=== PATIENT | female | born 1980 | race Caucasian/White ===

== ENCOUNTER 2018-05-06 19:49 | Inpatient (IN) | payer MEDICARE, MEDICAID ==
[~2018-05-06] VITALS: Ht 157.5 cm; Wt 56.7 kg
[2018-05-06 22:24] LABS: BASOPHILS % (AUTO) 0.4 % (0.0-2.0); EOSINOPHILS % (AUTO) 3.6 % (1.0-6.0); HEMATOCRIT 40.9 % (36-46); HEMOGLOBIN 13.6 g/dL (12.0-16.0); LYMPHOCYTES # (AUTO) 2.8 K/uL (1.0-4.8); LYMPHOCYTES % (AUTO) 20.4 % (22.0-44.0); MEAN CORPUSCULAR HEMOGLOBIN 31.8 pg (26.0-34.0); MEAN CORPUSCULAR HGB CONC 33.4 G/dL (31.0-37.0); MEAN CORPUSCULAR VOLUME 95 fL (80-100); MONOCYTES # (AUTO) 1.1 K/uL (0.1-1.0); MONOCYTES % (AUTO) 7.6 % (2.0-9.0); NEUTROPHILS # (AUTO) 9.5 K/uL (1.8-7.7); PLATELET COUNT (AUTO) 559 K/uL (150-450); RED BLOOD CELL COUNT(AUTO) 4.29 MIL/uL (4.00-5.20); RED CELL DISTRIBUTION WIDTH 13.3 % (11.5-14.5)
[2018-05-06 22:43] LABS: ANION GAP 4 mmol/L (8-16); CALCIUM, TOTAL 8.8 mg/dL (8.8-10.5); CARBON DIOXIDE 32 mmol/L (22-29); CHLORIDE 104 mmol/L (98-107); CREATININE 0.65 mg/dL (0.60-1.30); GLOMERULAR FILTR. RATE CALC > 60 mL/min (>60); GLUCOSE,RANDOM 83 mg/dL (70-110); POTASSIUM 4.7 mmol/L (3.5-5.1); SODIUM SERUM 140 mmol/L (136-145); UREA NITROGEN, BLOOD 14 mg/dL (7-18)
[2018-05-06 22:54] LABS: ALANINE AMINOTRANSFERASE 18 U/L (12-78); ALBUMIN 3.1 g/dL (3.4-5.0); ALKALINE PHOSPHATASE 97 U/L (46-116); ASPARTATE AMINOTRANSFERASE 16 U/L (15-37); BILIRUBIN,TOTAL 0.1 mg/dL (0.1-1.0); HCG,QUANTITATIVE < 1 mIU/mL (0-6); TOTAL PROTEIN, SERUM 7.1 g/dL (6.4-8.2)
[2018-05-06 23:36] LABS: AMPHET/METH SCREEN,URINE POSITIVE (NEGATIVE); BARBITURATE SCREEN, URINE NEGATIVE (NEGATIVE); BENZODIAZEPINES SCREEN,URINE NEGATIVE (NEGATIVE); CANNABINOID SCREEN,URINE POSITIVE (NEGATIVE); COCAINE SCREEN,URINE NEGATIVE (NEGATIVE); METHADONE SCREEN, URINE NEGATIVE (NEGATIVE); OPIATE SCREEN,URINE NEGATIVE (NEGATIVE); PHENCYCLIDINE SCREEN,URINE NEGATIVE (NEGATIVE)
[2018-05-07] MEDS ORDERED: HALOPERIDOL LACTATE 5 MG/ML VIAL IM ONE
[2018-05-07] MEDS ORDERED: LORazepam 2 MG/ML VIAL IM ONE
[2018-05-07] MEDS ORDERED: DiphenhydrAMINE HCL 50 MG/ML VIAL IM ONE
[2018-05-07] MEDS ORDERED: LORazepam 2 MG TABLET PO PRN (01:15)
[2018-05-07] MEDS ORDERED: HALOPERIDOL 5 MG TABLET PO PRN (01:15)
[2018-05-07] MEDS ORDERED: ZOLPIDEM TARTRATE 10 MG TABLET PO PRN (01:15)
[2018-05-07 02:43] VITALS: BP 128/85
[2018-05-07] MEDS ORDERED: FLUCONAZOLE 150 MG TABLET PO ONE (12:45)
[2018-05-07] MEDS ORDERED: MAGNESIUM HYDROXIDE SUSPENSION 30 ML UDCUP PO PRN (13:00)
[2018-05-07] MEDS ORDERED: TUBERCULIN, PURIFIED PROTEIN DERIVATIVE 5 TU/0.1 ML SYG ID ONE (13:00)
[2018-05-07] MEDS ORDERED: GuaiFENesin/D-METHORPHAN [SUGAR-FREE] 200-20MG/10 ML SYRUP UDCUP PO PRN (13:00)
[2018-05-07] MEDS ORDERED: HydrOXYzine PAMOATE 50 MG CAPSULE PO PRN (13:00)
[2018-05-07] MEDS ORDERED: PROMETHAZINE HCL 25 MG TABLET PO PRN (13:00)
[2018-05-07] MEDS ORDERED: ACETAMINOPHEN 325 MG TABLET PO PRN (13:00)
[2018-05-07] MEDS ORDERED: OLANZapine 5 MG RAPDIS TABLET PO PRN (13:00)
[2018-05-07] MEDS: THIAMINE HCL 100 MG TABLET PO SCH (20:34)
[2018-05-07] MEDS: NITROFURANTOIN/NITROFURAN MAC 100 MG CAPSULE [MACROBID] PO SCH (20:34)
[2018-05-07] MEDS: DIVALPROEX SODIUM 500 MG ER TABLET PO SCH (20:36)
[2018-05-07] MEDS ORDERED: OLANZapine 5 MG RAPDIS TABLET PO SCH (21:00)
[2018-05-08 07:00] LABS: HEMOGLOBIN A1C 5.9 % (4.5-6.2)
[2018-05-08 07:23] LABS: CHOL/HDL RATIO 2.7 (3.9-5.7); FREE T4 (FREE THYROXINE) 1.07 ng/dL (0.76-1.46); THYROID STIMULATING HORMONE 1.86 uIU/mL (0.36-3.74)
[2018-05-08] MEDS: THIAMINE HCL 100 MG TABLET PO SCH ×2 (08:46→17:00)
[2018-05-08] MEDS: NITROFURANTOIN/NITROFURAN MAC 100 MG CAPSULE [MACROBID] PO SCH ×2 (08:46→17:00)
[2018-05-08] MEDS: FOLIC ACID 1 MG TABLET PO SCH (08:46)
[2018-05-08] MEDS: MULTIVITAMINS WITH MINERALS, THERAPEUTIC TABLET PO SCH (08:46)
[2018-05-08] MEDS: NALTREXONE HCL 50 MG TABLET PO SCH (08:46)
[2018-05-08] MEDS: DIVALPROEX SODIUM 500 MG ER TABLET PO SCH (20:20)
[2018-05-08] MEDS: OLANZapine 10 MG RAPDIS TABLET PO SCH (20:20)
[2018-05-09] MEDS: THIAMINE HCL 100 MG TABLET PO SCH ×2 (09:24→16:48)
[2018-05-09] MEDS: NALTREXONE HCL 50 MG TABLET PO SCH (09:24)
[2018-05-09] MEDS: MULTIVITAMINS WITH MINERALS, THERAPEUTIC TABLET PO SCH (09:24)
[2018-05-09] MEDS: NITROFURANTOIN/NITROFURAN MAC 100 MG CAPSULE [MACROBID] PO SCH ×2 (09:24→16:48)
[2018-05-09] MEDS: FOLIC ACID 1 MG TABLET PO SCH (09:25)
[2018-05-09] MEDS: OLANZapine 10 MG RAPDIS TABLET PO SCH (20:10)
[2018-05-09] MEDS: DIVALPROEX SODIUM 500 MG ER TABLET PO SCH (20:11)
[2018-05-09] MEDS: CARBAMIDE PEROXIDE 6.5% 15 ML OTIC SOLUTION AU SCH (22:30)
[2018-05-10 06:25] LABS: BASOPHILS % (AUTO) 0.2 % (0.0-2.0); EOSINOPHILS % (AUTO) 2.6 % (1.0-6.0); LYMPHOCYTES # (AUTO) 2.7 K/uL (1.0-4.8); LYMPHOCYTES % (AUTO) 17.8 % (22.0-44.0); MEAN CORPUSCULAR HGB CONC 33.2 G/dL (31.0-37.0); MEAN CORPUSCULAR VOLUME 96 fL (80-100); MONOCYTES # (AUTO) 1.1 K/uL (0.1-1.0); NEUTROPHILS # (AUTO) 11.1 K/uL (1.8-7.7); NEUTROPHILS % (AUTO) 72.4 % (40.0-70.0); PLATELET COUNT (AUTO) 520 K/uL (150-450); RED BLOOD CELL COUNT(AUTO) 4.37 MIL/uL (4.00-5.20); RED CELL DISTRIBUTION WIDTH 13.2 % (11.5-14.5)
[2018-05-10 07:08] LABS: MAGNESIUM 1.8 mg/dL (1.80-2.40)
[2018-05-10] MEDS: LEVOFLOXACIN 500 MG TABLET PO SCH (09:20)
[2018-05-10] MEDS: NALTREXONE HCL 50 MG TABLET PO SCH (12:13)
[2018-05-10] MEDS: MULTIVITAMINS WITH MINERALS, THERAPEUTIC TABLET PO SCH (12:13)
[2018-05-10] MEDS: FOLIC ACID 1 MG TABLET PO SCH (12:13)
[2018-05-10] MEDS: THIAMINE HCL 100 MG TABLET PO SCH ×2 (12:13→16:57)
[2018-05-10 16:09] VITALS: BP 140/96
[2018-05-10] MEDS: ONDANSETRON HCL 4 MG TABLET PO PRN (16:57)
[2018-05-10 18:30] VITALS: BP 153/90
[2018-05-10] MEDS: CARBAMIDE PEROXIDE 6.5% 15 ML OTIC SOLUTION AU SCH (20:07)
[2018-05-10] MEDS: DIVALPROEX SODIUM 500 MG ER TABLET PO SCH (20:07)
[2018-05-10] MEDS: OLANZapine 10 MG RAPDIS TABLET PO SCH (20:07)
[2018-05-11] MEDS: THIAMINE HCL 100 MG TABLET PO SCH ×2 (11:58→16:52)
[2018-05-11] MEDS: LEVOFLOXACIN 500 MG TABLET PO SCH (11:58)
[2018-05-11] MEDS: NALTREXONE HCL 50 MG TABLET PO SCH (11:59)
[2018-05-11] MEDS: FOLIC ACID 1 MG TABLET PO SCH (11:59)
[2018-05-11] MEDS: MULTIVITAMINS WITH MINERALS, THERAPEUTIC TABLET PO SCH (11:59)
[2018-05-11 16:13] LABS: APPEARANCE,URINE CLOUDY (CLEAR); BILIRUBIN,URINE NEGATIVE (NEGATIVE); GLUCOSE, URINE (UA) NEGATIVE (NEGATIVE); KETONES,URINE NEGATIVE (NEGATIVE); LEUKOCYTE ESTERASE ,URINE NEGATIVE (NEGATIVE); NITRATE,URINE NEGATIVE (NEGATIVE); OCCULT BLOOD,URINE NEGATIVE (NEGATIVE); PROTEIN,URINE TRACE (NEGATIVE); UROBILINOGEN,URINE 0.2 mg/dL (<=1.0)
[2018-05-11] MEDS: DIVALPROEX SODIUM 500 MG ER TABLET PO SCH (21:04)
[2018-05-11] MEDS: OLANZapine 10 MG RAPDIS TABLET PO SCH (21:04)
[2018-05-11] MEDS: CARBAMIDE PEROXIDE 6.5% 15 ML OTIC SOLUTION AU SCH (21:05)
[2018-05-12 03:15] VITALS: BP 136/79
[2018-05-12] MEDS: MAG HYDROX/AL HYDROX/SIMETH ES 30 ML SUSPENSION UDCUP PO PRN (03:28)
[2018-05-12 08:05] VITALS: BP 159/87
[2018-05-12] MEDS: FOLIC ACID 1 MG TABLET PO SCH ×2 (09:00→09:01)
[2018-05-12] MEDS: MULTIVITAMINS WITH MINERALS, THERAPEUTIC TABLET PO SCH (09:00)
[2018-05-12] MEDS: THIAMINE HCL 100 MG TABLET PO SCH ×3 (09:00→20:53)
[2018-05-12] MEDS: NALTREXONE HCL 50 MG TABLET PO SCH ×2 (09:00→09:02)
[2018-05-12] MEDS: LEVOFLOXACIN 500 MG TABLET PO SCH (09:01)
[2018-05-12 20:52] VITALS: BP 149/101
[2018-05-12] MEDS: CARBAMIDE PEROXIDE 6.5% 15 ML OTIC SOLUTION AU SCH (20:53)
[2018-05-12] MEDS: DIVALPROEX SODIUM 500 MG ER TABLET PO SCH (21:00)
[2018-05-12] MEDS: OLANZapine 10 MG RAPDIS TABLET PO SCH (21:00)
[2018-05-13 03:44] VITALS: BP 122/81
[2018-05-13 05:58] LABS: BASOPHILS % (AUTO) 0.6 % (0.0-2.0); EOSINOPHILS % (AUTO) 3.9 % (1.0-6.0); HEMATOCRIT 40.6 % (36-46); HEMOGLOBIN 13.6 g/dL (12.0-16.0); LYMPHOCYTES # (AUTO) 2.8 K/uL (1.0-4.8); MEAN CORPUSCULAR HEMOGLOBIN 32.3 pg (26.0-34.0); MEAN CORPUSCULAR HGB CONC 33.6 G/dL (31.0-37.0); MEAN CORPUSCULAR VOLUME 96 fL (80-100); MONOCYTES # (AUTO) 0.8 K/uL (0.1-1.0); MONOCYTES % (AUTO) 10.9 % (2.0-9.0); NEUTROPHILS # (AUTO) 3.1 K/uL (1.8-7.7); NEUTROPHILS % (AUTO) 44.6 % (40.0-70.0); PLATELET COUNT (AUTO) 428 K/uL (150-450); RED BLOOD CELL COUNT(AUTO) 4.22 MIL/uL (4.00-5.20); RED CELL DISTRIBUTION WIDTH 13.3 % (11.5-14.5)
[2018-05-13 06:26] LABS: ALANINE AMINOTRANSFERASE 15 U/L (12-78); ALBUMIN 2.8 g/dL (3.4-5.0); ALKALINE PHOSPHATASE 82 U/L (46-116); ANION GAP 9 mmol/L (8-16); ASPARTATE AMINOTRANSFERASE 13 U/L (15-37); BILIRUBIN,TOTAL 0.2 mg/dL (0.1-1.0); CALCIUM, TOTAL 8.6 mg/dL (8.8-10.5); CARBON DIOXIDE 28 mmol/L (22-29); CHLORIDE 101 mmol/L (98-107); CREATININE 0.57 mg/dL (0.60-1.30); GLOMERULAR FILTR. RATE CALC > 60 mL/min (>60); GLUCOSE,RANDOM 111 mg/dL (70-110); POTASSIUM 3.8 mmol/L (3.5-5.1); SODIUM SERUM 138 mmol/L (136-145); TOTAL PROTEIN, SERUM 6.2 g/dL (6.4-8.2); UREA NITROGEN, BLOOD 14 mg/dL (7-18)
[2018-05-13 07:05] LABS: CREATINE KINASE, TOTAL ONLY 30 U/L (26-192)
[2018-05-13] MEDS: FOLIC ACID 1 MG TABLET PO SCH (09:18)
[2018-05-13] MEDS: LEVOFLOXACIN 500 MG TABLET PO SCH (09:18)
[2018-05-13] MEDS: MULTIVITAMINS WITH MINERALS, THERAPEUTIC TABLET PO SCH (09:18)
[2018-05-13] MEDS: THIAMINE HCL 100 MG TABLET PO SCH ×2 (09:18→16:34)
[2018-05-13] MEDS: NALTREXONE HCL 50 MG TABLET PO SCH (09:18)
[2018-05-13] MEDS ORDERED: PIPERONYL BUTOXIDE/PYRETHRINS 120 ML SHAMPOO TP ONE (09:30)
[2018-05-13 10:24] VITALS: BP 115/82
[2018-05-13 17:01] VITALS: BP 125/85
[2018-05-13] MEDS: OLANZapine 10 MG RAPDIS TABLET PO SCH (20:05)
[2018-05-13] MEDS: CARBAMIDE PEROXIDE 6.5% 15 ML OTIC SOLUTION AU SCH (20:05)
[2018-05-13] MEDS: DIVALPROEX SODIUM 500 MG ER TABLET PO SCH (20:05)
[2018-05-14] MEDS: FOLIC ACID 1 MG TABLET PO SCH (08:04)
[2018-05-14] MEDS: THIAMINE HCL 100 MG TABLET PO SCH ×2 (08:05→16:17)
[2018-05-14] MEDS: LEVOFLOXACIN 500 MG TABLET PO SCH (08:05)
[2018-05-14] MEDS: MULTIVITAMINS WITH MINERALS, THERAPEUTIC TABLET PO SCH (08:05)
[2018-05-14] MEDS: NALTREXONE HCL 50 MG TABLET PO SCH (08:05)
[2018-05-14 09:40] VITALS: BP 159/70
[2018-05-14 17:11] VITALS: BP 118/71
[2018-05-14] MEDS: CARBAMIDE PEROXIDE 6.5% 15 ML OTIC SOLUTION AU SCH (20:19)
[2018-05-14] MEDS: DIVALPROEX SODIUM 500 MG ER TABLET PO SCH (20:19)
[2018-05-14] MEDS: OLANZapine 10 MG RAPDIS TABLET PO SCH (20:22)
[2018-05-15] MEDS: THIAMINE HCL 100 MG TABLET PO SCH ×2 (09:22→16:20)
[2018-05-15] MEDS: NALTREXONE HCL 50 MG TABLET PO SCH (09:23)
[2018-05-15] MEDS: FOLIC ACID 1 MG TABLET PO SCH (09:23)
[2018-05-15] MEDS: MULTIVITAMINS WITH MINERALS, THERAPEUTIC TABLET PO SCH (09:24)
[2018-05-15 16:38] VITALS: BP 106/71
[2018-05-15] MEDS: OLANZapine 10 MG RAPDIS TABLET PO SCH (19:59)
[2018-05-15] MEDS: DIVALPROEX SODIUM 500 MG ER TABLET PO SCH (19:59)
[2018-05-15] MEDS: CARBAMIDE PEROXIDE 6.5% 15 ML OTIC SOLUTION AU SCH (20:00)
[2018-05-16] MEDS: THIAMINE HCL 100 MG TABLET PO SCH ×2 (09:28→16:25)
[2018-05-16] MEDS: MULTIVITAMINS WITH MINERALS, THERAPEUTIC TABLET PO SCH (09:28)
[2018-05-16] MEDS: NALTREXONE HCL 50 MG TABLET PO SCH (09:28)
[2018-05-16] MEDS: FOLIC ACID 1 MG TABLET PO SCH (09:28)
[2018-05-16 10:22] VITALS: BP 142/82
[2018-05-16 16:00] VITALS: BP 118/71
[2018-05-16] MEDS: DIVALPROEX SODIUM 500 MG ER TABLET PO SCH (20:06)
[2018-05-16] MEDS: OLANZapine 10 MG RAPDIS TABLET PO SCH (20:06)
[2018-05-16] MEDS: CARBAMIDE PEROXIDE 6.5% 15 ML OTIC SOLUTION AU SCH (20:07)
[2018-05-17 02:30] VITALS: BP 123/72
[2018-05-17] MEDS: THIAMINE HCL 100 MG TABLET PO SCH (08:09)
[2018-05-17] MEDS: NALTREXONE HCL 50 MG TABLET PO SCH (08:09)
[2018-05-17] MEDS: FOLIC ACID 1 MG TABLET PO SCH (08:09)
[2018-05-17] MEDS: MULTIVITAMINS WITH MINERALS, THERAPEUTIC TABLET PO SCH (08:09)
[2018-05-17] MEDS ORDERED: BISACODYL 5 MG EC TABLET PO PRN (08:15)
[2018-05-17 08:30] VITALS: BP 111/79
[2018-05-17] MEDS: OLANZapine 10 MG RAPDIS TABLET PO SCH (20:03)
[2018-05-17] MEDS: CARBAMIDE PEROXIDE 6.5% 15 ML OTIC SOLUTION AU SCH (20:03)
[2018-05-17] MEDS: DIVALPROEX SODIUM 500 MG ER TABLET PO SCH (20:03)
[2018-05-17 21:25] VITALS: BP 140/86
[2018-05-18 00:24] VITALS: BP 110/72
[2018-05-18] MEDS: MULTIVITAMINS WITH MINERALS, THERAPEUTIC TABLET PO SCH (08:15)
[2018-05-18] MEDS: NALTREXONE HCL 50 MG TABLET PO SCH (08:15)
[2018-05-18 11:14] VITALS: BP 122/78
[2018-05-18 16:33] VITALS: BP 105/68
[2018-05-18] MEDS: OLANZapine 10 MG RAPDIS TABLET PO SCH (20:59)
[2018-05-18] MEDS: DIVALPROEX SODIUM 500 MG ER TABLET PO SCH (20:59)
[2018-05-18] MEDS: CARBAMIDE PEROXIDE 6.5% 15 ML OTIC SOLUTION AU SCH (21:00)
[2018-05-19 00:35] VITALS: BP 115/83
[2018-05-19 08:00] VITALS: BP 120/60
[2018-05-19] MEDS: MULTIVITAMINS WITH MINERALS, THERAPEUTIC TABLET PO SCH (09:59)
[2018-05-19] MEDS: NALTREXONE HCL 50 MG TABLET PO SCH (09:59)
[2018-05-19] MEDS: ONDANSETRON HCL 4 MG TABLET PO PRN (11:15)
[2018-05-19] MEDS: LOPERAMIDE HCL 2 MG CAPSULE PO PRN ×2 (11:38→19:53)
[2018-05-19 16:00] VITALS: BP 112/68
[2018-05-19] MEDS: OLANZapine 10 MG RAPDIS TABLET PO SCH (19:52)
[2018-05-19] MEDS: DIVALPROEX SODIUM 500 MG ER TABLET PO SCH (19:52)
[2018-05-19] MEDS: CARBAMIDE PEROXIDE 6.5% 15 ML OTIC SOLUTION AU SCH (19:53)
[2018-05-20] MEDS: MAG HYDROX/AL HYDROX/SIMETH ES 30 ML SUSPENSION UDCUP PO PRN (03:24)
[2018-05-20 03:26] VITALS: BP 129/92
[2018-05-20] MEDS: LOPERAMIDE HCL 2 MG CAPSULE PO PRN ×3 (04:44→20:33)
[2018-05-20 10:44] VITALS: BP 115/78
[2018-05-20] MEDS: MULTIVITAMINS WITH MINERALS, THERAPEUTIC TABLET PO SCH (12:20)
[2018-05-20] MEDS: NALTREXONE HCL 50 MG TABLET PO SCH (12:20)
[2018-05-20 16:00] VITALS: BP 103/70
[2018-05-20] MEDS: DIVALPROEX SODIUM 500 MG ER TABLET PO SCH (20:04)
[2018-05-20] MEDS: CARBAMIDE PEROXIDE 6.5% 15 ML OTIC SOLUTION AU SCH (20:04)
[2018-05-20] MEDS: OLANZapine 10 MG RAPDIS TABLET PO SCH (20:04)
[2018-05-21] MEDS: NALTREXONE HCL 50 MG TABLET PO SCH (08:51)
[2018-05-21] MEDS: MULTIVITAMINS WITH MINERALS, THERAPEUTIC TABLET PO SCH (08:51)
[2018-05-21 09:39] VITALS: BP 112/71
[2018-05-21 18:52] VITALS: BP 143/70
[2018-05-21] MEDS: DIVALPROEX SODIUM 500 MG ER TABLET PO SCH (20:09)
[2018-05-21] MEDS: OLANZapine 10 MG RAPDIS TABLET PO SCH (20:10)
[2018-05-22 09:16] VITALS: BP 123/71
[2018-05-22] MEDS: NALTREXONE HCL 50 MG TABLET PO SCH (09:49)
[2018-05-22] MEDS: MULTIVITAMINS WITH MINERALS, THERAPEUTIC TABLET PO SCH (09:49)
[2018-05-22 19:59] VITALS: BP 124/68
[2018-05-22] MEDS: OLANZapine 10 MG RAPDIS TABLET PO SCH (20:03)
[2018-05-22] MEDS: DIVALPROEX SODIUM 500 MG ER TABLET PO SCH (20:03)
[2018-05-23 06:48] LABS: BASOPHILS % (AUTO) 0.4 % (0.0-2.0); EOSINOPHILS % (AUTO) 5.2 % (1.0-6.0); HEMATOCRIT 37.1 % (36-46); HEMOGLOBIN 12.4 g/dL (12.0-16.0); LYMPHOCYTES # (AUTO) 2.6 K/uL (1.0-4.8); LYMPHOCYTES % (AUTO) 32.5 % (22.0-44.0); MEAN CORPUSCULAR HEMOGLOBIN 32.5 pg (26.0-34.0); MEAN CORPUSCULAR HGB CONC 33.3 G/dL (31.0-37.0); MEAN CORPUSCULAR VOLUME 98 fL (80-100); MONOCYTES # (AUTO) 0.9 K/uL (0.1-1.0); MONOCYTES % (AUTO) 11.1 % (2.0-9.0); NEUTROPHILS # (AUTO) 4.1 K/uL (1.8-7.7); NEUTROPHILS % (AUTO) 50.8 % (40.0-70.0); PLATELET COUNT (AUTO) 236 K/uL (150-450)
[2018-05-23 07:10] LABS: ALANINE AMINOTRANSFERASE 12 U/L (12-78); ALBUMIN 2.9 g/dL (3.4-5.0); ALKALINE PHOSPHATASE 66 U/L (46-116); ANION GAP 5 mmol/L (8-16); ASPARTATE AMINOTRANSFERASE 8 U/L (15-37); BILIRUBIN,TOTAL 0.1 mg/dL (0.1-1.0); CALCIUM, TOTAL 8.5 mg/dL (8.8-10.5); CARBON DIOXIDE 27 mmol/L (22-29); CHLORIDE 107 mmol/L (98-107); CREATINE KINASE, TOTAL ONLY 34 U/L (26-192); GLOMERULAR FILTR. RATE CALC > 60 mL/min (>60); GLUCOSE,RANDOM 99 mg/dL (70-110); POTASSIUM 4.1 mmol/L (3.5-5.1); SODIUM SERUM 139 mmol/L (136-145); TOTAL PROTEIN, SERUM 5.9 g/dL (6.4-8.2); UREA NITROGEN, BLOOD 14 mg/dL (7-18)
[2018-05-23] MEDS: MULTIVITAMINS WITH MINERALS, THERAPEUTIC TABLET PO SCH (08:19)
[2018-05-23] MEDS: NALTREXONE HCL 50 MG TABLET PO SCH (08:20)
[2018-05-23 09:13] VITALS: BP 106/59
[2018-05-23 09:34] VITALS: BP 106/59
[2018-05-23 16:00] VITALS: BP 96/60
[2018-05-23] MEDS ORDERED: BISMUTH SUBSALICYLATE 262 MG CHEWABLE TABLET CHEW PRN (16:00)
[2018-05-23] MEDS ORDERED: OLAN10TA22 PO (17:05)
[2018-05-23] MEDS ORDERED: DIVA500T52 PO (17:05)
[2018-05-23] MEDS ORDERED: NALT50TA PO (17:05)
[2018-05-23] MEDS: OLANZapine 10 MG RAPDIS TABLET PO SCH (20:24)
[2018-05-23] MEDS: DIVALPROEX SODIUM 500 MG ER TABLET PO SCH (20:25)
[2018-05-24 08:30] VITALS: BP 118/61
[2018-05-24] MEDS: NALTREXONE HCL 50 MG TABLET PO SCH (08:53)
[2018-05-24] MEDS: MULTIVITAMINS WITH MINERALS, THERAPEUTIC TABLET PO SCH (08:53)
== END 2018-05-24 15:30 | disposition home or self-care (01) | DRG 885 ==
LOC: EMS 19:53 → 3EX 05-07 01:30
PROVIDERS: ADMIT Psychiatry & Neurology Psychiatry; ATTEND Psychiatry & Neurology Psychiatry
DX: F25.0 Schizoaffective disorder, bipolar type (principal); M62.82 Rhabdomyolysis; N39.0 Urinary tract infection, site not specified; Q21.1 Atrial septal defect; G89.29 Other chronic pain; J44.9 Chronic obstructive pulmonary disease, unspecified; F17.200 Nicotine dependence, unspecified, uncomplicated; F39 Unspecified mood [affective] disorder; F84.0 Autistic disorder; E88.09 Other disorders of plasma-protein metabolism, not elsewhere classified; F12.90 Cannabis use, unspecified, uncomplicated; F15.90 Other stimulant use, unspecified, uncomplicated; F60.0 Paranoid personality disorder; K59.00 Constipation, unspecified; H66.90 Otitis media, unspecified, unspecified ear; K29.70 Gastritis, unspecified, without bleeding; B37.3 Candidiasis of vulva and vagina; Z91.19 Patient's noncompliance with other medical treatment and regimen; Z79.899 Other long term (current) drug therapy; Z59.0 Homelessness; Z87.440 Personal history of urinary (tract) infections; Z65.3 Problems related to other legal circumstances; Z88.5 Allergy status to narcotic agent
CPT/HCPCS: 80074; 83036; 83735; 84439; 84443; 86592; 96372; G0378; G0480; J1200; J1630; J2060; Q0162